=== PATIENT | male | born 1995 ===

== ENCOUNTER 2017-05-12 18:11 | Emergency (ER) | payer OTHER ==
[~2017-05-12] VITALS: Ht 177.8 cm; Wt 122.5 kg
== END 2017-05-12 20:39 | disposition home or self-care (01) ==
LOC: ED 18:11
DX: H92.01 Otalgia, right ear (principal); T49.0X5A Adverse effect of local antifungal, anti-infective and anti-inflammatory drugs, initial encounter
CPT/HCPCS: 99282